=== PATIENT | male | born 2000 | race Hispanic/Latino ===

== ENCOUNTER 2025-06-07 20:03 | Emergency (ER) | payer SELFPAY ==
[~2025-06-07 20:03] MED LIST: Iopamidol-370 76% 500 ML MDV (1 ML CHARGE) ONE
[2025-06-07 22:57] LABS: #Basophils 0.04 10x3/uL (0.0-0.2); #Eosinophils 0.14 10x3/uL (0.0-0.7); #Monocytes 0.44 10x3/uL (0.11-0.59); #Neutrophils 2.60 10x3/uL (1.40-6.50); %Basophils 0.8 % (0.0-1.0); %Eosinophils 2.7 % (0.0-10.0); %Lymphocytes 36.7 % (21.0-51.0); %Monocytes 8.6 % (0.0-10.0); %Neutrophils 50.8 % (42.0-75.0); Hematocrit 42.8 % (42.0-52.0); Hemoglobin 14.6 g/dL (14.0-18.0); Mean Corpuscular Hemoglobin 27.1 pg (27.0-31.0); Mean Corpuscular Volume 79.4 fL (78.0-98.0); Platelet Count 217 10x3/uL (130-400); Red Blood Cell (RBC) Count 5.39 mill/uL (4.70-6.10); White Blood Cell (WBC) Count 5.12 10x3/uL (4.8-10.8)
[2025-06-07 23:13] LABS: ALT (SGPT) 78 U/L (Less than 45); AST (SGOT) 38 U/L (11-34); Albumin 4.9 g/dL (3.1-4.5); Alkaline Phosphatase 112 U/L (40-110); Anion Gap 15 mmol/L (10-20); BUN (Urea Nitrogen) 16 mg/dL (8.9-20.6); Bilirubin, Total 0.3 mg/dL (0.3-1.2); Calc. Creatinine Clearance 0 mL/min (70-130); Calcium 9.5 mg/dL (7.8-10.44); Carbon Dioxide 21 mmol/L (22-29); Chloride 106 mmol/L (98-107); Globulin 3.0 g/dL (2.4-3.5); Glucose 96 mg/dL (70-105); Potassium 3.8 mmol/L (3.5-5.1); Sodium 138 mmol/L (136-145)
[2025-06-07 23:14] LABS: INR-International Normal Ratio 1.0; PTT 31.5 sec (22.9-36.1); Prothrombin Time 13.2 sec (12.0-14.7)
[2025-06-07] MEDS ORDERED: Ondansetron PF 4 MG/2 ML Vial ONE (23:19)
[2025-06-07] MEDS ORDERED: predniSONE 20 MG TAB ONE (23:50)
== END 2025-06-08 00:09 | disposition home or self-care (01) ==
LOC: ERS 20:03
DX: G51.0 Bell's palsy (principal)
CPT/HCPCS: 70496; 70498; 80053; 85025; 85610; 85730; 93005; 94760; J2405; J7512